=== PATIENT | male | born 1960 | race Caucasian/White ===

== ENCOUNTER 2022-06-05 10:54 | Day surgery (SDC) | payer BC ==
[~2022-06-05 10:54] MED LIST: Lactated Ringers 1,000 ML IV SCH; Lidocaine 1%/Sod Bicarbonate in NS 8.4% 1 ML Syringe IDERM PRN; Sodium Chloride 0.9% 10 ML Syringe FLUSH PRN; Sodium Chloride 0.9% 10 ML Syringe FLUSH SCH
[2022-06-05] MEDS ORDERED: fentaNYL 100 MCG/2 ML SDV ONE (11:22)
[2022-06-05] MEDS ORDERED: Midazolam 1 MG/ML 2 ML SDV ONE (11:22)
[2022-06-05] MEDS ORDERED: Propofol 200 MG/20 ML SDV ONE ×2 (11:22→13:10)
[2022-06-05] MEDS ORDERED: Lidocaine 1% 4 ML ONE (11:22)
== END 2022-06-05 14:05 | disposition home or self-care (01) ==
LOC: JD.SDS 10:54
PROVIDERS: ATTEND Surgery
DX: Z12.11 Encounter for screening for malignant neoplasm of colon (principal); D12.2 Benign neoplasm of ascending colon; D12.4 Benign neoplasm of descending colon; D64.9 Anemia, unspecified; K44.9 Diaphragmatic hernia without obstruction or gangrene; K21.9 Gastro-esophageal reflux disease without esophagitis; E78.5 Hyperlipidemia, unspecified; E03.9 Hypothyroidism, unspecified; Z86.010 Personal history of colon polyps; Z79.899 Other long term (current) drug therapy; Z98.890 Other specified postprocedural states; Z87.891 Personal history of nicotine dependence
CPT/HCPCS: 43235; 45385; J2250; J2704; J3010; J7120

== ENCOUNTER 2022-07-28 07:30 | Day surgery (SDC) | payer BC ==
[~2022-07-28 07:30] MED LIST changes: +Acetaminophen 325 MG Tab PO SCH; +EPINEPHrine 1 MG/ML SDV ONE; +Lidocaine 1% 4 ML ONE; +Midazolam 1 MG/ML 2 ML SDV ONE; +Ondansetron 4 MG/2 ML SDV ONE; +Pregabalin 25 MG Cap PO SCH; +Propofol 200 MG/20 ML SDV ONE; +Rocuronium 50 MG/5 ML Vial ONE; +Ropivacaine 0.5% 5 MG/ML 30 ML SDV ONE; +fentaNYL 100 MCG/2 ML SDV ONE; +oxyCODONE ER 10 MG TAB.ER PO SCH
[2022-07-28] MEDS ORDERED: Tranexamic Acid 1,000 MG/10 ML Vial ONE (07:41)
[2022-07-28] MEDS ORDERED: Vancomycin 1 GM SDV ONE (07:41)
[2022-07-28] MEDS ORDERED: fentaNYL 100 MCG/2 ML SDV IVPUSH PRN (08:15)
[2022-07-28] MEDS ORDERED: Ondansetron 4 MG/2 ML SDV IVPUSH PRN (08:15)
[2022-07-28] MEDS ORDERED: HYDROmorphone 0.5 MG/0.5 ML Syringe IVPUSH PRN (08:15)
[2022-07-28] MEDS ORDERED: Ropivacaine 0.5% 5 MG/ML 30 ML SDV ONE (08:23)
[2022-07-28] MEDS ORDERED: Propofol 200 MG/20 ML SDV ONE (09:04)
[2022-07-28] MEDS ORDERED: ceFAZolin 2 GM Vial ONE (09:11)
[2022-07-28] MEDS ORDERED: Ketorolac 30 MG/ML SDV ONE (09:30)
[2022-07-28] MEDS ORDERED: Sugammadex Sodium 200 MG/2 ML VIAL ONE (09:47)
[2022-07-28] MEDS ORDERED: HYDROmorphone 0.5 MG/0.5 ML Syringe ONE (10:08)
[2022-07-28] MEDS ORDERED: oxyCODONE 5 MG Tab PO PRN (11:11)
== END 2022-07-28 13:40 | disposition home or self-care (01) ==
LOC: JD.SDS 07:30
PROVIDERS: ATTEND Orthopaedic Surgery
DX: M19.011 Primary osteoarthritis, right shoulder (principal); D64.9 Anemia, unspecified; K21.9 Gastro-esophageal reflux disease without esophagitis; E03.9 Hypothyroidism, unspecified; E78.00 Pure hypercholesterolemia, unspecified; Z79.899 Other long term (current) drug therapy; Z98.890 Other specified postprocedural states; Z87.891 Personal history of nicotine dependence; Z79.82 Long term (current) use of aspirin
CPT/HCPCS: 01638; 64415; 73020-26-RT; 73020-RT; 76000; 76000-26; 97166-GO; 97530-GO; A9270-GY; C1713; C1769; C1776; J0171; J0690; J1170; J1885; J2250; J2405; J2704; J2795; J3010; J3370; J3490; J7120

== ENCOUNTER → 2024-09-01 | Day surgery (SDC) | payer BC ==
[~2024-09-01] MED LIST changes: -Acetaminophen 325 MG Tab PO SCH; +Dexamethasone 4 MG/ML 5 ML MDV ONE; -EPINEPHrine 1 MG/ML SDV ONE; +HYDROmorphone 0.5 MG/0.5 ML Syringe IVPUSH PRN; -Lactated Ringers 1,000 ML IV SCH; -Lidocaine 1% 4 ML ONE; -Lidocaine 1%/Sod Bicarbonate in NS 8.4% 1 ML Syringe IDERM PRN; +Ondansetron 4 MG/2 ML SDV IVPUSH PRN; +Phenylephrine 1% 10 MG/ML SDV ONE; -Pregabalin 25 MG Cap PO SCH; +Sugammadex Sodium 200 MG/2 ML VIAL IV ONE; +ceFAZolin 2 GM Vial ONE; +dexmedeTOMIDine HCl 200 MCG/2 ML SDV ONE; +ePHEDrine 50 MG/ML SDV ONE; +fentaNYL 100 MCG/2 ML SDV IVPUSH PRN; -oxyCODONE ER 10 MG TAB.ER PO SCH
[2024-09-01] MEDS: Lactated Ringers 1,000 ML IV SCH (07:30)
[2024-09-01 07:47] LABS: BASOPHILS PERCENT AUTO 0.4 % (0.0-1.0); EOSINOPHILS ABSOLUTE AUTO 0.1 K/mm3 (0.0-0.4); EOSINOPHILS PERCENT AUTO 1.5 % (0.0-6.0); HEMATOCRIT 41.6 % (42.0-52.0); HEMOGLOBIN 14.3 gm/dl (14.0-18.0); IMMATURE GRAN ABSOLUTE AUTO 0.01 K/mm3 (0.00-0.05); IMMATURE GRAN PERCENT AUTO 0.2 % (0.0-0.4); LYMPHOCYTES ABSOLUTE AUTO 1.4 K/mm3 (1.0-4.8); LYMPHOCYTES PERCENT AUTO 26.3 % (24.0-44.0); MEAN CORPUSCULAR HEMOGLOBIN 31.4 pg (28.0-32.0); MEAN CORPUSCULAR HGB CONC 34.4 g/dl (32.0-36.0); MEAN CORPUSCULAR VOLUME 91.4 fl (83.0-99.0); MEAN PLATELET VOLUME 9.7 fl (9.4-12.4); MONOCYTES ABSOLUTE AUTO 0.5 K/mm3 (0.0-0.8); MONOCYTES PERCENT AUTO 9.1 % (0.0-8.0); NEUTROPHILS ABSOLUTE AUTO 3.4 K/mm3 (1.8-7.7); NEUTROPHILS PERCENT AUTO 62.5 % (41.0-71.0); PLATELET COUNT,PLT 179 K/mm3 (150-400); RED BLOOD CELL COUNT 4.55 M/mm3 (4.52-5.90); WHITE BLOOD CELL COUNT,WBC 5.37 K/mm3 (3.9-11.3)
[2024-09-01 08:04] LABS: INR 0.93; PROTHROMBIN TIME 9.9 SECONDS (9.7-12.0)
[2024-09-01] MEDS: Acetaminophen 325 MG Tab PO ONE (08:05)
[2024-09-01] MEDS: Pregabalin 25 MG Cap PO ONE (08:05)
[2024-09-01] MEDS: oxyCODONE ER 10 MG TAB.ER PO ONE (08:06)
[2024-09-01] MEDS: Tranexamic Acid 1,000 MG/10 ML Vial ONE (10:58)
[2024-09-01] MEDS: VANCOmycin 1 GM SDV ONE (10:59)
== END | disposition home or self-care (01) ==
LOC: JD.SDS 08:11
PROVIDERS: ATTEND Orthopaedic Surgery
DX: M19.012 Primary osteoarthritis, left shoulder (principal); E03.9 Hypothyroidism, unspecified; Z87.891 Personal history of nicotine dependence; Z79.899 Other long term (current) drug therapy; Z79.890 Hormone replacement therapy
CPT/HCPCS: 23472; 36415; 64415; 76000; 85025; 85610; 97116; 97161; 97530; A9270; C1713; C1769; C1776; J0690; J1100; J2250; J2371; J2405; J2704; J2795; J3010; J7120; 01638; J3490

== ENCOUNTER 2025-06-07 07:22 | Day surgery (SDC) | payer BC ==
[~2025-06-07 07:22] MED LIST changes: -Dexamethasone 4 MG/ML 5 ML MDV ONE; -HYDROmorphone 0.5 MG/0.5 ML Syringe IVPUSH PRN; -Midazolam 1 MG/ML 2 ML SDV ONE; -Ondansetron 4 MG/2 ML SDV IVPUSH PRN; -Ondansetron 4 MG/2 ML SDV ONE; -Phenylephrine 1% 10 MG/ML SDV ONE; -Propofol 200 MG/20 ML SDV ONE; -Rocuronium 50 MG/5 ML Vial ONE; -Ropivacaine 0.5% 5 MG/ML 30 ML SDV ONE; -Sugammadex Sodium 200 MG/2 ML VIAL IV ONE; -ceFAZolin 2 GM Vial ONE; -dexmedeTOMIDine HCl 200 MCG/2 ML SDV ONE; -ePHEDrine 50 MG/ML SDV ONE; -fentaNYL 100 MCG/2 ML SDV IVPUSH PRN; -fentaNYL 100 MCG/2 ML SDV ONE
[2025-06-07] MEDS: Lactated Ringers 1,000 ML IV SCH (07:30)
[2025-06-07] MEDS ORDERED: Ondansetron 4 MG/2 ML SDV IVPUSH PRN (07:58)
[2025-06-07] MEDS ORDERED: fentaNYL 100 MCG/2 ML SDV IVPUSH PRN (07:58)
[2025-06-07] MEDS ORDERED: propofoL 500 MG/50 ML 50 ML ONE (08:22)
== END 2025-06-07 09:34 | disposition home or self-care (01) ==
LOC: JD.SDS 07:22
PROVIDERS: ATTEND Surgery
DX: Z12.11 Encounter for screening for malignant neoplasm of colon (principal); E78.5 Hyperlipidemia, unspecified; E03.9 Hypothyroidism, unspecified; Z86.0101 Personal history of adenomatous and serrated colon polyps; Z79.899 Other long term (current) drug therapy; Z79.890 Hormone replacement therapy
CPT/HCPCS: 45378; J2704; J7120; 00812